=== PATIENT | male | born 1965 | race Caucasian/White ===

== ENCOUNTER 2018-08-09 06:30 | Day surgery (SDC) | payer SELFPAY ==
[~2018-08-09] VITALS: Ht 171.4 cm; Wt 77.1 kg
[~2018-08-09 06:30] MED LIST: BUPIVAC MPF-EPI 0.5%-1:200000 30 ML VIAL. ONE
[2018-08-09] MEDS ORDERED: fentaNYL PF VIAL 100 MCG/2 ML VIAL IV PRN (07:00)
[2018-08-09] MEDS ORDERED: IV RINGERS,LACTATED 1000ML 1,000 ML IV SCH (07:00)
[2018-08-09] MEDS ORDERED: ONDANSETRON PF 4 MG/2 ML VIAL. IV PRN (07:00)
[2018-08-09] MEDS ORDERED: LIDOCAINE 1% PF 2 ML VIAL. ID PRN (07:00)
[2018-08-09] MEDS ORDERED: PROCHLORPERAZINE 10 MG/2 ML VIAL. IV PRN (07:00)
[2018-08-09] MEDS ORDERED: MORPHINE SULFATE 2 MG/ML VIAL. IV PRN (07:00)
[2018-08-09] MEDS ORDERED: HYDROmorphone 2 MG/ML VIAL IV PRN (07:00)
[2018-08-09] MEDS ORDERED: ONDANSETRON PF 4 MG/2 ML VIAL. ONE (07:04)
[2018-08-09] MEDS ORDERED: PROPOFOL 20 ML IV ONE (07:04)
[2018-08-09] MEDS ORDERED: DEXAMETHASONE SOD PHOS 20 MG/5 ML VIAL. ONE (07:05)
[2018-08-09] MEDS ORDERED: fentaNYL PF VIAL 100 MCG/2 ML VIAL ONE ×2 (07:06→09:55)
[2018-08-09] MEDS ORDERED: ROCURONIUM 50 MG/5 ML VIAL. ONE (07:06)
[2018-08-09] MEDS ORDERED: GLYCOPYRROLATE 1 MG/5 ML VIAL. ONE (09:16)
[2018-08-09] MEDS ORDERED: NEOSTIGMINE 10 MG/10 ML VIAL. ONE (09:17)
--- NOTE | 2018-08-09 09:44 | PDOC ---
BRIEF OPERATIVE NOTE Date: Aug 09, 2018 Pre-Op Diagnosis right inguinal hernia Post-Op Diagnosis same, indirect with some laxity of the inguinal floor Procedure Performed repair with mesh Surgeon Vishal Anesthesia Type: General Blood Loss 20cc IV Fluid 600cc Specimens Obtained none Findings indirect hernia sack some laxity of the inguinal floor Complications none Operative Note Wk # [id number] SUZANNA TOMAS MD Aug 09, 2018 09:43
[2018-08-09] MEDS: fentaNYL PF VIAL 100 MCG/2 ML VIAL IV PRN ×2 (10:00→10:21)
--- NOTE | 2018-08-09 10:29 | DISCH ---
DISCHARGE INSTRUCTIONS Condition on Discharge Condition on Discharge: Stable Activity After Discharge Activity Instructions for Disc: Activity as tolerated, Avoid exertion Lifting Instructions after Dis: No heavy lifting Driving Instructions after Dis: Do not drive (3-4 days) Diet after Discharge Diet after Discharge: Regular Wound Incision Care Wound/Incision Care: Ice to area for comfort Other wound/incision instructi: jair grace Thursday Follow-Up Follow up with: Vishal next week SUZANNA TOMAS MD Aug 09, 2018 10:28
[2018-08-09] MEDS ORDERED: OXYC1TAB15 PO (10:57)
[2018-08-09 11:50] VITALS: BP 141/76
--- NOTE | 2018-08-09 12:43 | OP ---
DATE OF SURGERY: 08/09/2018 PREOPERATIVE DIAGNOSIS: Right inguinal hernia. POSTOPERATIVE DIAGNOSES: Right inguinal hernia, indirect with some laxity of the inguinal floor. PROCEDURE: Repair with mesh. SURGEON: Suzanna Tomas MD. ANESTHESIA: General endotracheal. ESTIMATED BLOOD LOSS: 20 mL. IV FLUIDS: 600 mL. DESCRIPTION OF PROCEDURE: The patient brought to the operating suite, given a general endotracheal anesthetic and the right groin prepped and draped in usual sterile fashion. A 0.5% Marcaine with epinephrine was used to infiltrate the skin and subcutaneous tissue along the incision line. Incision made and dissection carried down to the external oblique fascia. Bleeders were cauterized as identified. Fascia opened in the direction of its fibers, extended through the external ring. Cord was stripped off the pubis. Paris drain placed around it and dissection carried back to the internal ring where an indirect hernia sac was identified, skeletonized and reduced. This was held in reduction with a small plug of Phasix mesh, tacked with 2-0 PDS, taking care to avoid injury to adjacent vessels. Some laxity in the inguinal floor was imbricated with a running stitch of 0 Vicryl. The keyhole patch was placed over the repair, the slit closed with a single 2-0 PDS stitch and the area checked for adequate hemostasis. When present and a correct sponge count had been obtained, the cord was returned to its normal anatomical position. The external oblique fascia closed over in a running fashion with 3-0 Vicryl. Subcutaneous approximated with 3-0 Vicryl, skin closed with a subcuticular 4-0 Monocryl. Steri-Strips and sterile dressing applied. Prior to emergence from anesthesia, digital rectal exam revealed a slightly enlarged boggy prostate without nodularity. The patient was awakened from his anesthetic and taken to the recovery room in satisfactory condition. SUZANNA TOMAS MD DR: PETERSON/jacky JOB#: [id number] / [id number]
== END 2018-08-09 11:50 | disposition home or self-care (01) ==
LOC: SURG 06:30
PROVIDERS: ATTEND Surgery
DX: K40.90 Unilateral inguinal hernia, without obstruction or gangrene, not specified as recurrent (principal); Z91.018 Allergy to other foods; Z98.890 Other specified postprocedural states; Z83.3 Family history of diabetes mellitus; Z82.49 Family history of ischemic heart disease and other diseases of the circulatory system; Z87.891 Personal history of nicotine dependence; Z72.89 Other problems related to lifestyle
CPT/HCPCS: 49505; C1781; J0690; J1100; J2405; J2704; J2710; J3010; J3490